=== PATIENT | male | born 1970 | race Caucasian/White ===

== ENCOUNTER 2018-06-19 13:27 | Emergency (ER) | END 2018-06-19 19:30 | disposition home or self-care (01) ==

== ENCOUNTER 2019-01-10 11:44 | Emergency (ER) | payer OTHER ==
[~2019-01-10] VITALS: Ht 170.2 cm; Wt 68.0 kg
[~2019-01-10 11:44] MED LIST: AMLO-145 PO; HYDR-762 PO; LANT3I SC; NYST15CR28 TOP; UDMOM PO
[2019-01-10 11:52] VITALS: Ht 170.2 cm; Wt 68.0 kg
[2019-01-10] MEDS ORDERED: KETOROLAC 30 MG INJ IV STA (12:15)
[2019-01-10] MEDS ORDERED: SOD CHLORIDE 0.9% 1,000 ML IV STA (12:15)
[2019-01-10] MEDS ORDERED: BISACODYL 10 MG SUPP PR ONE (12:30)
[2019-01-10] MEDS ORDERED: LACTULOSE 30ML CUP PO ONE (12:30)
[2019-01-10] MEDS ORDERED: TAMS-14 PO ×2 (13:57→15:20)
[2019-01-10] MEDS ORDERED: INSU100V3 IJ (13:58)
[2019-01-10] MEDS ORDERED: INSU100I33 SC (13:58)
[2019-01-10] MEDS ORDERED: METO-448 PO (13:59)
[2019-01-10] MEDS ORDERED: CARV3.1260 PO (13:59)
[2019-01-10] MEDS ORDERED: LOSA100T15 PO (13:59)
[2019-01-10] MEDS ORDERED: ACCU-CHEK XX ONE ×2 (14:00→16:00)
[2019-01-10] MEDS ORDERED: INSULIN LISPRO 100 UNIT/ML VIAL SC ONE ×2 (14:00→16:00)
[2019-01-10] MEDS ORDERED: CIPR500T4 PO (15:20)
[2019-01-10] MEDS ORDERED: MAGN296S40 PO (15:23)
--- NOTE | 2019-01-10 15:24 | ERD ---
ER Documentation Chief Complaint Chief Complaint AP SENT FROM CLINIC NO BM X 3 DAYS. HPI Patient is a 48-year-old male with coronary disease and diabetes who presents with abdominal pain. He was brought in by ambulance. He says "I cannot have a bowel movement." He said that it started 1.5 weeks ago. He said that he tried a medication and they can go to the bathroom but it did not work. He has not had a bowel movement over the past 3 days. He usually goes every other day. He is complaining of right upper quadrant pain as well. He has no fevers. Upon review of old medical records this is the patient's sixth visit to the ER since 2008. His primary doctor is Dr. Beltrán. ROS All systems reviewed and are negative except as per history of present illness. Medications Home Meds Active Scripts Magnesium Citrate* (Magnesium Citrate*) 296 Ml Solution, 296 ML PO ONCE, #1 BOTTLE Prov:KANDY CORTES MD 01/10/19 Tamsulosin Hcl* (Flomax*) 0.4 Mg Cap.er.24h, 0.4 MG PO QPM, #30 CAP Prov:KANDY CORTES MD 01/10/19 Ciprofloxacin Hcl* (Ciprofloxacin Hcl*) 500 Mg Tablet, 500 MG PO BID for 7 Days, TAB Prov:KANDY CORTES MD 01/10/19 Reported Medications Carvedilol* (Carvedilol*) 3.125 Mg Tablet, 3.125 MG PO BID, #60 TAB 01/10/19 Losartan Potassium* (Losartan Potassium*) 100 Mg Tablet, 100 MG PO DAILY, TAB 01/10/19 Metoprolol Tartrate* (Lopressor*) 25 Mg Tab, 25 MG PO BID, #60 TAB 01/10/19 Insulin Glargine,Hum.rec.anlog (Basaglar Kwikpen U-100) 100 Unit/1 Ml Insuln.pen, 60 UNIT SC QHS, EA 01/10/19 Insulin Regular, Human (Humulin R) 100 Unit/1 Ml Vial, 6 UNIT IJ AC A, VIAL 01/10/19 Tamsulosin Hcl* (Flomax*) 0.4 Mg Cap.er.24h, 0.4 MG PO DAILY, CAP 01/10/19 Discontinued Reported Medications Nystatin* (Nystatin*) 15 Gm Cr, 1 APPLIC TOP TID, #1 TUB 02/12/16 Hydrocodone Bit-Acetaminophen* ([place]*) 10-325 Mg Tablet, 1 TAB PO TID PRN for PAIN, TAB 02/12/16 Discontinued Scripts Insulin Glargine* (Lantus*) 100 Unit/Ml Soln, 30 UNIT SC DAILY, #1 VIAL Prov:LUIS TORRES MD 02/17/16 Magnesium Hydroxide* ([place] MOM*) 30 Ml Susp, 30 ML PO BID PRN for CONSTIPATION, #1 BOTTLE Prov:LUIS TORRES MD 02/17/16 Amlodipine Besylate* (Amlodipine Besylate*) 5 Mg Tablet, 5 MG PO DAILY, #30 TAB Prov:LUIS TORRES MD 02/17/16 Allergies Allergies: Coded Allergies: No Known Allergy (Verified , 01/10/19) PMhx/Soc History of Surgery: Yes (SPINE SX, TONSILLECTOMY) Anesthesia Reaction: No Hx Neurological Disorder: No Hx Respiratory Disorders: Yes (ASTHMA) Hx Cardiac Disorders: Yes (HTN) Hx Psychiatric Problems: Yes (PTSD, DEPRESSION) Hx Miscellaneous Medical Probl: Yes (DM) Hx Alcohol Use: No Hx Substance Use: Yes (MARIJUANA) Hx Tobacco Use: Yes Smoking Status: Heavy tobacco smoker FmHx Family History: coronary disease Physical Exam Vitals Vital Signs Date Temp Pulse Resp B/P (MAP) Pulse Ox O2 O2 Flow FiO2 Time Delivery Rate 01/10/19 98.4 88 16 132/77 99 Room Air 16:07 (95) 01/10/19 97.8 64 16 131/89 99 11:52 (103) Physical Exam Const: No acute distress Head: Atraumatic Eyes: Normal Conjunctiva ENT: Normal External Ears, Nose and Mouth. Neck: Full range of motion. No meningismus. Resp: Clear to auscultation bilaterally Cardio: Regular rate and rhythm, no murmurs Abd: Soft, diffuse tenderness to palpation without rebound or guarding Skin: No petechiae or rashes Back: No midline or flank tenderness Ext: No cyanosis, or edema Neur: Awake and alert Psych: Normal Mood and Affect Result Diagram: 01/10/19 1251 01/10/19 1251 Results 24 hrs Laboratory Tests Test 01/10/19 12:46 01/10/19 12:50 01/10/19 12:51 5/8/19 14:13 Bedside Glucose 507 mg/dL > 595 mg/dL Urine Color STRAW Urine Clarity CLEAR Urine pH 6.0 Urine Specific 1.024 [place] Urine Ketones NEGATIVE mg/dL Urine Nitrite NEGATIVE mg/dL Urine Bilirubin NEGATIVE mg/dL Urine Urobilinogen NEGATIVE mg/dL Urine Leukocyte NEGATIVE Demetra/ul Esterase Urine Microscopic 1 /HPF RBC Urine Microscopic 3 /HPF WBC Urine Hemoglobin 1+ mg/dL Urine Glucose 3+ mg/dL Urine Total Protein NEGATIVE mg/dl White Blood Count 9.2 10^3/ul Red Blood Count 5.47 10^6/ul Hemoglobin 15.9 g/dl Hematocrit 47.1 % Mean Corpuscular 86.1 fl Volume Mean Corpuscular 29.1 pg Hemoglobin Mean Corpuscular 33.8 g/dl Hemoglobin Concent Red Cell 11.9 % Distribution Width Platelet Count 164 10^3/UL Mean Platelet 11.7 fl Volume Immature 0.300 % Granulocytes % Neutrophils % 69.4 % Lymphocytes % 21.8 % Monocytes % 5.9 % Eosinophils % 1.9 % Basophils % 0.7 % Nucleated Red Blood 0.0 /100WBC Cells % Immature 0.030 10^3/ul Granulocytes # Neutrophils # 6.4 10^3/ul Lymphocytes # 2.0 10^3/ul Monocytes # 0.5 10^3/ul Eosinophils # 0.2 10^3/ul Basophils # 0.1 10^3/ul Nucleated Red Blood 0.0 10^3/ul Cells # Sodium Level 133 mmol/L Potassium Level 4.7 mmol/L Chloride Level 95 mmol/L Carbon Dioxide 30 mmol/L Level Anion Gap 8 Blood Urea Nitrogen 15 mg/dl Creatinine 0.81 mg/dl Est Glomerular > 60 mL/min Filtrat Rate mL/min Glucose Level 460 mg/dl Lactic Acid Level 1.6 mmol/L Calcium Level 8.8 mg/dl Total Bilirubin 0.5 mg/dl Direct Bilirubin 0.00 mg/dl Indirect Bilirubin 0.5 mg/dl Aspartate Amino 28 IU/L Transf (AST/SGOT) Alanine 39 IU/L Aminotransferase (A LT/SGPT) Alkaline 131 IU/L Phosphatase Troponin I < 0.012 ng/ml Total Protein 6.9 g/dl Albumin 3.6 g/dl Globulin 3.30 g/dl Albumin/Globulin 1.09 Ratio Lipase 210 U/L Test 01/10/19 14:20 01/10/19 15:46 Bedside Glucose 402 mg/dL 428 mg/dL Current Medications Medications Dose Sig/Jody Start Time Status Last (Trade) Ordered Route PRN Stop Time Admin Dose Reason Admin Sodium 1,000 ml @ Q1H STAT 01/10/19 DC 01/10/19 Chloride 1,000 mls/hr IV 12:15 01/10/19 12:53 13:14 Ketorolac 30 mg ONCE STAT 01/10/19 DC 01/10/19 Tromethamine IV 12:15 01/10/19 12:53 (Toradol) 12:17 Lactulose 20 gm ONCE ONCE 01/10/19 DC 01/10/19 (Enulose) PO 12:30 01/10/19 12:54 12:31 Bisacodyl 10 mg ONCE ONCE 01/10/19 DC 01/10/19 (Dulcolax [place] 12:30 01/10/19 12:53 Supp) 12:31 Insulin 10 unit ONCE ONCE 01/10/19 DC 01/10/19 Human SC 14:00 01/10/19 14:30 Lispro 14:01 (Humalog) Diagnostic 1 ea 2 HRS AFTER 01/10/19 DC 01/10/19 Test (Pha) HUMALOG ONCE 14:00 01/10/19 14:00 (Accu-Chek) XX 14:01 Insulin 10 unit ONCE ONCE 01/10/19 DC 01/10/19 Human SC 16:00 01/10/19 16:02 Lispro 16:01 (Humalog) Diagnostic 1 ea 2 HRS AFTER 01/10/19 DC Test (Pha) HUMALOG ONCE 16:00 01/10/19 (Accu-Chek) XX 16:01 Procedures/MDM EKG read by me: Rate/Rhythm: Regular rate and rhythm at a rate of 88 Intervals: Normal Impression: No evidence of ischemia or arrhythmia CT abdomen pelvis read by radiology shows neurogenic bladder with distended bladder and hydronephrosis bilaterally. Gallbladder ultrasound shows normal gallbladder per radiology. Smoking Cessation Therapy: Pt. was lectured for greater than 3 minutes on the health risks of continued smoking and the benefits of cessation. Patient is a 48-year-old male who presents with abdominal pain. He also has constipation. He was found to have a distended bladder with hydronephrosis of Bbab catheter and leg bag was placed. The patient will need to follow-up with Dr. Jaime from urology. At this point I doubt acute coronary syndrome, appendicitis, cholecystitis, pancreatitis, or bowel obstruction. I believe outpatient management is appropriate. The patient was given lactulose and Dulcolax will be given a prescription for magnesium citrate. He will be given Flomax and Cipro as a Babb catheter is being placed. I do not believe he requires admission to the hospital but close follow-up with urology within 24 to 48 hours was recommended. Departure Diagnosis: Primary Impression: Constipation Constipation type: unspecified constipation type Qualified Codes: K59.00 - Constipation, unspecified Additional Impressions: Urinary retention Hyperglycemia Abdominal pain Abdominal location: generalized Qualified Codes: R10.84 - Generalized abdominal pain Condition: Fair Patient Instructions: Abdominal Pain, Hyperglycemia (High Blood Sugar), Constipation (Adult), Urinary Retention, Male Referrals: MAYI JAIME MD Additional Instructions: SPECIALIST: YOU HAVE A MEDICAL CONDITION WHICH REQUIRES YOU TO SEE A SPECIALIST WITHIN THE NEXT 1-2 DAYS. PLEASE FOLLOW UP WITH YOUR PRIMARY PHYSICIAN FOR REFFERAL.IF YOU DO NOT HAVE A PRIMARY CARE PHYSICIAN AND/OR YOU CAN NOT AFFORD TO SEE A PHYSICIAN THE FOLLOWING RESOURCES HAVE BEEN SUPPLIED TO YOU. IT IS YOUR RESPONSIBILITY TO BE SEEN BY THE SPECIALIST KANDY CORTES MD January 10, 2019 15:24
[2019-01-10 16:07] VITALS: BP 132/77; PULSE 88; RESP 16
== END 2019-01-10 16:09 | disposition home or self-care (01) ==
LOC: E/R 11:44
DX: K59.00 Constipation, unspecified (principal); R33.9 Retention of urine, unspecified; E11.65 Type 2 diabetes mellitus with hyperglycemia; I10 Essential (primary) hypertension; J45.909 Unspecified asthma, uncomplicated; F17.210 Nicotine dependence, cigarettes, uncomplicated; Z79.4 Long term (current) use of insulin
CPT/HCPCS: 36415; 51702; 74176; 76705; 80053; 81001; 82962; 83605; 83690; 84484; 85025; 93005; 96372; 96374; J1815; J1885; J7030; Z7502; Z7610